=== PATIENT | male | born 1990 | race Caucasian/White ===

== ENCOUNTER 2019-09-08 17:21 | Inpatient (IN) | payer OTHER ==
--- NOTE | 2019-09-08 17:30 | PDOC ---
Rapid Medical Evaluation Chief Complaint: Abnormal Lab Results (Outside) Time Seen by Provider: 09/08/19 17:28 Medical Evaluation: Allergies Allergy/AdvReac Type Severity Reaction Status Date / Time No Known Allergies Allergy Verified 09/08/19 17:27 Vital Signs Temp Pulse Resp BP Pulse Ox 99.2 F 110 H 18 125/76 100 09/08/19 17:23 09/08/19 17:23 09/08/19 17:23 09/08/19 17:23 09/08/19 17:23 09/08/19 17:28 I have performed a brief in-person evaluation of this patient. CC: sent from [facility] for transaminitis PE: HR-114. T-99.2. No focal findings Orders: labs, urine, ekg Patient will proceed to ED for further evaluation. 09/08/19 17:29 Discharge Disposition - Diagnosis Elevated liver enzymes - Referrals - Patient Instructions - Post Discharge Activity
[2019-09-08] MEDS ORDERED: SODIUM CHLORIDE 1,000 ML IV STA (17:31)
[2019-09-08 18:21] LABS: URINE APPEARANCE Clear; URINE BILIRUBIN Negative (NEGATIVE); URINE COLOR Yellow; URINE GLUCOSE (UA) Negative (NEGATIVE); URINE KETONE Negative (NEGATIVE); URINE LEUK ESTERASE Negative (NEGATIVE); URINE NITRITE Negative (NEGATIVE); URINE PROTEIN Negative (NEGATIVE)
[2019-09-08 18:35] LABS: BASO % 0.6 % (0-2.0); HEMATOCRIT 46.1 % (35.4-49); HEMOGLOBIN 15.3 GM/dL (11.7-16.9); LYMPH % 34.2 % (8-40); MCH 30.1 pg (25.7-33.7); MCHC 33.1 g/dl (32.0-35.9); MEAN CELL VOLUME 90.8 fl (80-96); MEAN PLT VOLUME 7.8 fl (7.5-11.1); MONO % 9.6 % (3.8-10.2); NEUT % 54.6 % (42.8-82.8); PLATELET COUNT 193 K/MM3 (134-434); RBC 5.08 M/mm3 (4.00-5.60); RDW 16.3 % (11.9-15.9); WHITE BLOOD COUNT 7.6 K/mm3 (4.0-10.0)
[2019-09-08 18:42] LABS: ALBUMIN 4.1 g/dl (3.4-5.0); BILIRUBIN,TOTAL 0.8 mg/dL (0.2-1); BLOOD UREA NITROGEN 7.3 mg/dL (7-18); CALCIUM 9.3 mg/dL (8.5-10.1); CREATININE 0.8 mg/dL (0.55-1.3); POTASSIUM 4.4 mmol/L (3.5-5.1); TOT PROT 8.2 g/dl (6.4-8.2)
--- NOTE | 2019-09-08 18:56 | PDOC ---
Documentation entered by Claudia Mark SCRIBE, acting as scribe for Hannah Richardson MD. Hannah Richardson MD: This documentation has been prepared by the yaraibeJas Ana, SCRIBE, under my direction and personally reviewed by me in its entirety. I confirm that the documentation accurately reflects all work, treatment, procedures, and medical decision making performed by me. Attending Attestation - Resident Resident Name: Makenna Sharpe - ED Attending Attestation I have performed the following: I have examined & evaluated the patient, The case was reviewed & discussed with the resident, I agree w/resident's findings & plan, Exceptions are as noted - HPI HPI: 09/08/19 18:24 Patient is a 29 year old male with a significant past medical history of HIV, who presents to the ED with abnormal lab results x3 days. Patient said he had his labs checked 3 days ago and they showed elevated liver enzymes which prompted his doctor to send him to the ED. Pt denies symptoms at this time. Per Dr. Costa, his LFTs have been increasing over the last week. She requests admission for GI consultation. Patient denies: headache, fever, chills, nausea, vomiting, SOB, abdominal pain, diarrhea, dizziness, focal weakness/numbness or any other related symptoms. Allergies: NKDA PCP: Dr. Aurora Costa - Physicial Exam PE: 09/08/19 18:55 Agree with resident exam - Medical Decision Making 09/08/19 18:55 29yo M hx HIV on HAART (last CD4 in 600s) presents to the ED for admission with elevated LFTs AST/ALT Plan for RUQ US Discharge - Discharge Information Clinical Impression/Diagnosis: Elevated liver enzymes - Follow up/Referral Referrals: Aurora Costa MD [Primary Care Provider] - - Patient Discharge Instructions - Post Discharge Activity
--- NOTE | 2019-09-08 19:32 | PDOC ---
History of Present Illness - General Chief Complaint: Abnormal Lab Results (Outside) Stated Complaint: SENT BY DOCTOR Time Seen by Provider: 09/08/19 17:28 - History of Present Illness Initial Comments: 09/08/19 19:24 HPI: This is a 29 y/o male with a PMH of HIV sent in by his ID physician Dr. Costa due to abnormally elevated liver enzymes found incidentally on routine labs three days ago. The enzymes have remained elevated for the past three days and Dr. Costa wanted admission for transaminitis and GI consult. The patient denies excessive alcohol use but admits to drinking two days last week (3-4 drinks), drug use, or a history of hepatitis. He denies any accompanying symptoms including abdominal pain, nausea, vomiting, or diarrhea. ROS: GENERAL/CONSTITUTIONAL: No fever/chills. No weakness. HEAD, EYES, EARS, NOSE AND THROAT: No change in vision. No sore throat. CARDIOVASCULAR: No chest pain or shortness of breath. RESPIRATORY: No cough or wheezing GASTROINTESTINAL: No nausea, vomiting, diarrhea or constipation. GENITOURINARY: No dysuria or frequency MUSCULOSKELETAL: No joint or muscle swelling or pain. No neck or back pain. NEUROLOGIC: No headache or loss of consciousness. HEMATOLOGIC/LYMPHATIC: No anemia, easy bleeding, or history of blood clots. ALLERGIC/IMMUNOLOGIC: No hives or skin allergy. PMH: HIV PSx: Appendix Social Hx: Meds: Biktarvy Allergies: Denied ID Physician: Igor PE: GENERAL: Awake, alert, and fully oriented, in no acute distress. Patient was sitting comfortably in his bed and was conversational. HEAD: No signs of trauma EYES: PERRL, EOMI ENT: Hearing grossly normal, Moist mucosa NECK: Normal ROM, supple LUNGS: Breath sounds equal, clear to auscultation bilaterally. No wheezes, and no crackles HEART: Regular rate and rhythm, normal S1 and S2, no murmurs, rubs or gallops ABDOMEN: Soft, nontender, normoactive bowel sounds. No guarding, no rebound. No masses EXTREMITIES: Normal range of motion, no edema. No clubbing or cyanosis. No cords, erythema, or tenderness NEUROLOGICAL: Cranial nerves II through XII grossly intact. Normal speech, normal gait 09/08/19 21:10 MDM: This is a 29 y/o male with a PMH of HIV sent in by his ID Dr. Costa due to abnormally elevated liver enzymes found incidentally on routine labs three days ago. Patient denies any other symptoms at this time. CBC,CMP WBC 7.6 K/mm3 (4.0-10.0) 09/08/19 17:53 RBC 5.08 M/mm3 (4.00-5.60) 09/08/19 17:53 Hgb 15.3 GM/dL (11.7-16.9) 09/08/19 17:53 Hct 46.1 % (35.4-49) 09/08/19 17:53 MCV 90.8 fl (80-96) 09/08/19 17:53 MCH 30.1 pg (25.7-33.7) 09/08/19 17:53 MCHC 33.1 g/dl (32.0-35.9) 09/08/19 17:53 RDW 16.3 % (11.9-15.9) H 09/08/19 17:53 Plt Count 193 K/MM3 (134-434) 09/08/19 17:53 MPV 7.8 fl (7.5-11.1) 09/08/19 17:53 Absolute Neuts (auto) 4.2 K/mm3 (1.5-8.0) 09/08/19 17:53 Neutrophils % 54.6 % (42.8-82.8) 09/08/19 17:53 Lymphocytes % 34.2 % (8-40) 09/08/19 17:53 Monocytes % 9.6 % (3.8-10.2) 09/08/19 17:53 Eosinophils % 1.0 % (0-4.5) 09/08/19 17:53 Basophils % 0.6 % (0-2.0) 09/08/19 17:53 Nucleated RBC % 0 % (0-0) 09/08/19 17:53 Sodium 140 mmol/L (136-145) 09/08/19 17:53 Potassium 4.4 mmol/L (3.5-5.1) 09/08/19 17:53 Chloride 105 mmol/L (98-107) 09/08/19 17:53 Carbon Dioxide 28 mmol/L (21-32) 09/08/19 17:53 Anion Gap 7 MMOL/L (8-16) L 09/08/19 17:53 BUN 7.3 mg/dL (7-18) 09/08/19 17:53 Creatinine 0.8 mg/dL (0.55-1.3) 09/08/19 17:53 Est GFR (CKD-EPI)AfAm 139.91 09/08/19 17:53 Est GFR (CKD-EPI)NonAf 120.72 09/08/19 17:53 Random Glucose 92 mg/dL (74-106) 09/08/19 17:53 Calcium 9.3 mg/dL (8.5-10.1) 09/08/19 17:53 Total Bilirubin 0.8 mg/dL (0.2-1) 09/08/19 17:53 AST 435 U/L (15-37) H 09/08/19 17:53 ALT 996 U/L (13-61) H 09/08/19 17:53 Alkaline Phosphatase 121 U/L (45-117) H 09/08/19 17:53 Total Protein 8.2 g/dl (6.4-8.2) 09/08/19 17:53 Albumin 4.1 g/dl (3.4-5.0) 09/08/19 17:53 Lipase 92 U/L (73-393) 09/08/19 17:53 Elevated AST, ALT, Alkaline Phosphatase 09/08/19 21:14 US: Impression: Possible diffuse hepatic steatosis. No sonographic evidence of cholelithiasis or acute cholecystitis. There is no definite biliary tract dilatation. Patient will be admitted for GI consult. Past History - Medical History Allergies/Adverse Reactions: Allergies Allergy/AdvReac Type Severity Reaction Status Date / Time No Known Allergies Allergy Verified 09/08/19 17:27 Home Medications: Ambulatory Orders Bictegrav/Emtricit/Tenofov Ala [Biktarvy 50-200-25 mg Tablet] 1 each PO DAILY #30 tablet 09/06/19 Anemia: No Asthma: No Cancer: No Cardiac Disorders: No COPD: No CHF: No Diabetes: No GI Disorders: No Disorders: No HTN: No Liver Disease: No Seizures: No Thyroid Disease: No - Surgical History Appendectomy: Yes - Psycho-Social/Smoking History Smoking History: Current every day smoker Have you smoked in the past 12 months: Yes Information on smoking cessation initiated: Yes - Substance Abuse Hx (Audit-C & DAST Scrn) How often the patient has a drink containing alcohol: Monthly or less Score: In Men: 4 or > Positive; In Women: 3 or > Positive: 1 Screen Result (Pos requires Nsg. Audit-10AR): Negative In the last yr the pt used illegal drug/Rx for NonMed reason: No Score: Yes response is considered Positive: 0 Screen Result (Positive result requires Nsg. DAST-10): Negative *Physical Exam - Vital Signs Last Vital Signs Temp Pulse Resp BP Pulse Ox 99.2 F 74 18 116/75 98 09/08/19 17:23 09/08/19 18:35 09/08/19 18:35 09/08/19 18:35 09/08/19 18:35 ED Treatment Course - LABORATORY CBC & Chemistry Diagram: 09/09/19 06:16 09/09/19 06:16 - ADDITIONAL ORDERS Additional order review: Laboratory Results 09/08/19 09/08/19 17:53 17:53 Sodium 140 Potassium 4.4 Chloride 105 Carbon Dioxide 28 Anion Gap 7 L BUN 7.3 Creatinine 0.8 Est GFR (CKD-EPI)AfAm 139.91 Est GFR (CKD-EPI)NonAf 120.72 Random Glucose 92 Calcium 9.3 Total Bilirubin 0.8 AST 435 H ALT 996 H Alkaline Phosphatase 121 H Total Protein 8.2 Albumin 4.1 Lipase 92 Urine Color Yellow Urine Appearance Clear Urine pH 6.0 Ur Specific [place] >= 1.030 Urine Protein Negative Urine Glucose (UA) Negative Urine Ketones Negative Urine Blood Negative Urine Nitrite Negative Urine Bilirubin Negative Urine Urobilinogen 1.0 Ur Leukocyte Esterase Negative 09/08/19 17:53 RBC 5.08 MCV 90.8 MCHC 33.1 RDW 16.3 H MPV 7.8 Neutrophils % 54.6 Lymphocytes % 34.2 Monocytes % 9.6 Eosinophils % 1.0 Basophils % 0.6 - Medications Given in the ED: ED Medications Discontinued Medications Generic Name Dose Route Start Last Admin Trade Name Freq PRN Reason Stop Dose Admin Sodium Chloride 1,000 mls @ 1,000 mls/hr 09/08/19 17:31 09/08/19 17:56 Normal Saline - IV 09/08/19 18:30 1,000 mls/hr ASDIR STA Administration Discharge - Discharge Information Problems reviewed: Yes Clinical Impression/Diagnosis: Elevated liver enzymes, HIV infection, asymptomatic Condition: Stable - Admission Yes - Follow up/Referral - Patient Discharge Instructions - Post Discharge Activity
--- NOTE | 2019-09-08 21:45 | PN ---
Teaching Attending Note Name of Resident: Mahendra Viramontes ATTENDING PHYSICIAN STATEMENT I saw and evaluated the patient. I reviewed the resident's note and discussed the case with the resident. I agree with the resident's findings and plan as documented. SUBJECTIVE: Patient is a 29 year old man with a PMH of HIV disease on HAART (last CD4 count was 632 on September 06, 2019), Appendectomy, Hemorrhoids and Marijuana use who was sent to the ER with abnormal laboratory results. Patient said he had his labs checked 3 days ago and they showed elevated liver enzymes which prompted his doctor to send him to the ER. Patient offers no specific complaints at this time. Per Dr. Costa, his LFTs have been increasing over the last week. She requests admission for GI consultation. Patient says he has received Hepatitis B vaccination. Patient denies headache, fever, chills, nausea, vomiting, SOB, abdominal pain, diarrhea, dizziness, focal weakness or numbness. Denies alcohol, tobacco or illicit drug use. No sick contacts or recent travels. Has family history of DM in mother. OBJECTIVE: Alert Vital Signs Period Temp Pulse Resp BP Sys/Chaney Pulse Ox Last 24 Hr 99.2 F 74-110 18-18 116-125/75-76 98-100 HEENT: No Jaundice, eye redness or discharge, PERRLA, EOMI. Normocephalic, atraumatic. External ears are normal and hearing is grossly intact. No nasal discharge. Neck: Supple, nontender. No palpable adenopathy or thyromegaly. No JVD Chest: Good effort. Clear to auscultation and percussion. Heart: Regular. No S3, rub or murmur Abdomen: Not distended, soft, nontender and no HSM. No rebound or guarding. Normal bowel sounds. Ext: Peripheral pulses intact. No leg edema. Skin: Warm and dry. No petechiae, rash or ecchymosis. Neuro: Alert. Oriented x3. CN 2-12 grossly intact. Sensation grossly intact in all four extremities and DTR are symmetric. Psych: Appropriate mood and affect. Good insight. Home Medications Medication Instructions Recorded Bictegrav/Emtricit/Tenofov Ala 1 each PO DAILY #30 tablet 09/06/19 [Biktarvy 50-200-25 mg Tablet] Abnormal Lab Results 09/08/19 09/08/19 17:53 17:53 RDW 16.3 H Anion Gap 7 L AST 435 H ALT 996 H Alkaline Phosphatase 121 H Current Medications Generic Name Dose Route Start Last Admin Trade Name Tobias PRN Reason Stop Dose Admin Enoxaparin Sodium 40 mg 09/09/19 10:00 Lovenox - SQ DAILY ISABELL Non-Formulary Medication 1 each 09/09/19 10:00 Bictegrav/Emtricit/Tenofov Ala PO DAILY ISABELL ASSESSMENT AND PLAN: 1. Transaminitis - Etiology unclear. Ultrasound showed diffuse hepatic steatosis but no biliary obstruction. Will get hepatitis serology, trend LFTs and consult GI. Viral testing for COVID-19 ordered and patient placed on airborne, droplet and contact isolation. EKG shows NSR at 91/minute and QTc [address]-T wave changes. Continue Biktarvy for HIV disease. 2. DVT prophylaxis - Lovenox 40 mg SQ q 24 hours. 3. Advance directives - Full code
[2019-09-08 23:23] VITALS: BMI 25.5
--- NOTE | 2019-09-09 01:01 | HP ---
CHIEF COMPLAINT: Presents for abnormal labs PCP: Dr. Costa HISTORY OF PRESENT ILLNESS: Alicia Raza is a 29 Y M with a PMH of HIV (HAART- Biktarvy) present today from [facility] after abnormal lab values. Patient reports that his PCP Dr. Costa has been monitoring his LFTs for the last few days and noticed a progressive increase and after review of todays lab, he was referred to ER for further evaluation and management. At this time he denies any nausea, vomiting, fever, chills, night seats, diarrhea, chest pain, abdominal pain, palpitations, dysuria, or hematuria. His last CD4 count was 632 on September 05. He does not know his most recent viral counts. ED Course: He received N/S 1, 000ml. RUQ U/S was significant for possible diffuse hepatic steatosis. No evidence of cholelithiasis or acute cholecystitis. No biliary tract dilatation. ER course was notable for: (1) LFTS: AST 435, ALT 996, AKLP 121 (2) (3) Recent Travel: Denies PAST MEDICAL HISTORY: As above in HPI PAST SURGICAL HISTORY: Appendectomy Social History: Smoking: denies Alcohol: 2-3x/month, 4-5 glasses of cocktail Drugs: Current everyday marijuana use, about 3-4 blunts Allergies No Known Allergies Allergy (Verified 09/08/19 17:27) HOME MEDICATIONS: Home Medications Medication Instructions Recorded Bictegrav/Emtricit/Tenofov Ala 1 each PO DAILY #30 tablet 09/06/19 [Biktarvy 50-200-25 mg Tablet] REVIEW OF SYSTEMS CONSTITUTIONAL: Present: loss of appetite, Absent: fever, chills, diaphoresis, generalized weakness, malaise, HEENT: Absent: rhinorrhea, nasal congestion, throat pain, difficulty swallowing CARDIOVASCULAR: Absent: chest pain, syncope, palpitations, irregular heart rate, lightheadedness, peripheral edema RESPIRATORY: Absent: cough, shortness of breath, dyspnea with exertion, orthopnea, wheezing GASTROINTESTINAL: Present: abdominal discomfort, Nausea, vomiting Absent: abdominal distension , diarrhea, constipation GENITOURINARY: Present: flank pain Absent: dysuria, frequency, urgency, hesitancy, hematuria MUSCULOSKELETAL: Present: Right ankle pain Absent: myalgia, arthralgia, joint swelling, back pain, neck pain SKIN: Absent: rash, itching, pallor NEUROLOGIC: Absent: headache, focal weakness or paresthesias, dizziness, unsteady gait, bladder or bowel incontinence PHYSICAL EXAMINATION Vital Signs - 24 hr 09/08/19 09/08/19 09/08/19 17:23 18:35 23:00 Temperature 99.2 F 98.5 F Pulse Rate 110 H 85 Pulse Rate [ 74 Left Apical] Respiratory 18 18 18 Rate Blood Pressure 125/76 126/68 Blood Pressure 116/75 [Left Arm] O2 Sat by Pulse 100 98 98 Oximetry (%) 09/08/19 23:03 Temperature 98.5 F Pulse Rate 85 Pulse Rate [ Left Apical] Respiratory 18 Rate Blood Pressure 126/68 Blood Pressure [Left Arm] O2 Sat by Pulse 98 Oximetry (%) GENERAL: Awake, alert, and fully oriented, in no acute distress. HEAD: Normal with no signs of trauma. EYES: Pupils equal, round and reactive to light, extraocular movements intact, sclera anicteric, conjunctiva clear. EARS, NOSE, THROAT: Ears normal, nares patent, oropharynx clear without exudates. Moist mucous membranes. NECK: Normal range of motion, supple without lymphadenopathy, JVD, or masses. LUNGS: Breath sounds equal, clear to auscultation bilaterally. No wheezes, and no crackles. No accessory muscle use. HEART: Regular rate and rhythm, normal S1 and S2 without murmur, rub or gallop. ABDOMEN: Soft, mild discomfort to palpation-Nausea, not distended, Increased bowel sounds, no guarding, no rebound, no masses. No hepatomegaly or splenomegaly. MUSCULOSKELETAL: Normal range of motion at all joints. No bony deformities or tenderness. Right CVA tenderness. UPPER EXTREMITIES: 2+ pulses, warm, well-perfused. No cyanosis. No clubbing. No peripheral edema. LOWER EXTREMITIES: 2+ pulses, warm, well-perfused. No calf tenderness. No peripheral edema. NEUROLOGICAL: Normal speech. Normal gait. PSYCHIATRIC: Cooperative. Good eye contact. Appropriate mood and affect. SKIN: Warm, dry, normal turgor, no rashes or lesions noted Laboratory Results - last 24 hr 09/08/19 09/08/19 09/08/19 17:53 17:53 17:53 WBC 7.6 RBC 5.08 Hgb 15.3 Hct 46.1 MCV 90.8 MCH 30.1 MCHC 33.1 RDW 16.3 H Plt Count 193 MPV 7.8 Absolute Neuts (auto) 4.2 Neutrophils % 54.6 Lymphocytes % 34.2 Monocytes % 9.6 Eosinophils % 1.0 Basophils % 0.6 Nucleated RBC % 0 Sodium 140 Potassium 4.4 Chloride 105 Carbon Dioxide 28 Anion Gap 7 L BUN 7.3 Creatinine 0.8 Est GFR (CKD-EPI)AfAm 139.91 Est GFR (CKD-EPI)NonAf 120.72 Random Glucose 92 Calcium 9.3 Total Bilirubin 0.8 AST 435 H ALT 996 H Alkaline Phosphatase 121 H Total Protein 8.2 Albumin 4.1 Lipase 92 Urine Color Yellow Urine Appearance Clear Urine pH 6.0 Ur Specific [place] >= 1.030 Urine Protein Negative Urine Glucose (UA) Negative Urine Ketones Negative Urine Blood Negative Urine Nitrite Negative Urine Bilirubin Negative Urine Urobilinogen 1.0 Ur Leukocyte Esterase Negative ASSESSMENT/PLAN: 29 Y M with a PMH of HIV (HAART-Biktarvy) present today from [facility] for elevated LFTS. RUQ U/S was significant for possible diffuse hepatic steatosis. Patient is admitted for workup and management of elevated LFTs. #Transaminitis - Unclear etiology for hepatic cell injury - RUQ u/s was significant for diffuse hepatic steatosis w/o any biliary obstruction - consulted GI, will f/u with recs - f/u with Hep panel - will trend LFTs #HIV - CD4 count : 632 on September 05 - Continue home medications #FEN - No standing fluids - Continue to monitor electrolytes, trend LFTs - Normal Diet #DVT PPX - Lovenox 40mg Visit type - Emergency Visit Emergency Visit: Yes ED Registration Date: 09/08/19 Care time: The patient presented to the Emergency Department on the above date and was hospitalized for further evaluation of their emergent condition. - New Patient This patient is new to me today: Yes Date on this admission: 09/11/19 - Critical Care Critical Care patient: No ATTENDING PHYSICIAN STATEMENT I saw and evaluated the patient. I reviewed the resident's note and discussed the case with the resident. I agree with the resident's findings and plan as documented. SUBJECTIVE: OBJECTIVE: ASSESSMENT AND PLAN:
[2019-09-09 08:16] LABS: BASO % 0.6 % (0-2.0); EOS % 1.4 % (0-4.5); HEMATOCRIT 44.1 % (35.4-49); HEMOGLOBIN 14.4 GM/dL (11.7-16.9); LYMPH % 27.1 % (8-40); MCH 29.5 pg (25.7-33.7); MCHC 32.6 g/dl (32.0-35.9); MEAN CELL VOLUME 90.5 fl (80-96); MEAN PLT VOLUME 8.3 fl (7.5-11.1); MONO % 10.4 % (3.8-10.2); NEUT % 60.5 % (42.8-82.8); PLATELET COUNT 204 K/MM3 (134-434); RBC 4.88 M/mm3 (4.00-5.60); RDW 16.4 % (11.9-15.9)
[2019-09-09 08:55] LABS: CALCIUM 9.1 mg/dL (8.5-10.1); POTASSIUM 4.2 mmol/L (3.5-5.1)
[2019-09-09 09:00] LABS: ALBUMIN 3.6 g/dl (3.4-5.0); BILIRUBIN,TOTAL 1.4 mg/dL (0.2-1); BLOOD UREA NITROGEN 7.6 mg/dL (7-18); CREATININE 0.7 mg/dL (0.55-1.3); MAGNESIUM 2.4 mg/dL (1.8-2.4); PHOSPHOROUS 4.6 mg/dL (2.5-4.9); TOT PROT 7.3 g/dl (6.4-8.2)
[2019-09-09] MEDS ORDERED: PATIENT'S OWN MEDICATION (NON-FORMULARY) (Bictegrav/Emtricit/Tenofov Ala 1 EACH) PO SCH (10:00)
[2019-09-09] MEDS ORDERED: ENOXAPARIN NA (PORCINE) 40 MG/0.4 ML DISP.SYRIN SQ SCH (10:00)
[2019-09-09] MEDS ORDERED: BICTEGRAV/EMTRICIT/TENOFOV (BIKTARVY) 50-200-25 MG TABLET PO SCH (10:00)
--- NOTE | 2019-09-09 10:23 | EKG ---
Test Reason : Blood Pressure : / mmHG Vent. Rate : 091 BPM Atrial Rate : 091 BPM P-R Int : 148 ms QRS Dur : 098 ms QT Int : 336 ms P-R-T Axes : 055 076 058 degrees QTc Int : 413 ms NORMAL SINUS RHYTHM NORMAL ECG NO PREVIOUS ECGS AVAILABLE Confirmed by ALEKSANDRA ALDRIDGE MD ([id number]) on 09/09/2019 10:23:10 AM Referred By: Confirmed By:ALEKSANDRA ALDRIDGE MD
[2019-09-09 11:17] VITALS: BP 114/61; PULSE 85; TEMP 98
--- NOTE | 2019-09-09 12:13 | CON.GI ---
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 He was switched to Biktarvy several months ago. He started Biotin 4 weeks ago and stopped it one week ago. He denies any NSAIDs, acetaminophenor any herbal intake. He did have an alcohol binge on 26 of August having 5 Zain denies on Thursday and again in Thursday. He reports that he drinks alcohol only on weekends. he has been vaccinated for hepatitis A&B. His sonogram reveals a fatty liver,. NO stones or ductal dilation. No recent foreign travel. No rashes or night sweats. No tick bites. NO h/o liver disease. Appetite is good and weight is steady. NO IVDA or tranfusions but has has multiple tattoos. His mother has alcoholic liver disease. Works in [employer]. - History Source History Provided By: Patient Limitations to Obtaining History: No Limitations - Past Medical History Gastrointestinal: Yes: Hemorrhoids Hepatobiliary: Yes: Other (fatty liver) Infectious Disease: Yes: HIV - Past Surgical History Past Surgical History: Yes: None - Alcohol/Substance Use Hx Alcohol Use: Yes () History of Substance Use: reports: None - Smoking History Smoking history: Current every day smoker Have you smoked in the past 12 months: Yes - Social History Usual Living Arrangement: Alone ADL: Independent Occupation: interior design Place of : [facility] History of Recent Travel: No Home Medications - Allergies Allergies/Adverse Reactions: Allergies Allergy/AdvReac Type Severity Reaction Status Date / Time No Known Allergies Allergy Verified 09/08/19 17:27 - Home Medications Home Medications: Ambulatory Orders Bictegrav/Emtricit/Tenofov Ala [Biktarvy 50-200-25 mg Tablet] 1 each PO DAILY #30 tablet 09/06/19 Family Medical History Other Family History: mother has alcoholic liver disease Review of Systems - Review of Systems Constitutional: reports: No Symptoms Eyes: reports: No Symptoms HENT: reports: No Symptoms Neck: reports: No Symptoms Cardiovascular: reports: No Symptoms Respiratory: reports: No Symptoms Gastrointestinal: reports: No Symptoms Genitourinary: reports: No Symptoms Breasts: reports: No Symptoms Reported Integumentary: reports: No Symptoms Neurological: reports: No Symptoms Endocrine: reports: No Symptoms Hematology/Lymphatic: reports: No Symptoms Physical Exam-GI Vital Signs: Vital Signs Temperature 98 F 09/09/19 11:00 Pulse Rate 85 09/09/19 11:00 Respiratory Rate 18 09/09/19 11:00 Blood Pressure 114/61 09/09/19 11:00 O2 Sat by Pulse Oximetry (%) 98 09/09/19 11:00 CBC,CMP WBC 6.0 K/mm3 (4.0-10.0) 09/09/19 06:16 RBC 4.88 M/mm3 (4.00-5.60) 09/09/19 06:16 Hgb 14.4 GM/dL (11.7-16.9) 09/09/19 06:16 Hct 44.1 % (35.4-49) 09/09/19 06:16 MCV 90.5 fl (80-96) 09/09/19 06:16 MCH 29.5 pg (25.7-33.7) 09/09/19 06:16 MCHC 32.6 g/dl (32.0-35.9) 09/09/19 06:16 RDW 16.4 % (11.9-15.9) H 09/09/19 06:16 Plt Count 204 K/MM3 (134-434) 09/09/19 06:16 MPV 8.3 fl (7.5-11.1) 09/09/19 06:16 Absolute Neuts (auto) 3.6 K/mm3 (1.5-8.0) 09/09/19 06:16 Neutrophils % 60.5 % (42.8-82.8) 09/09/19 06:16 Lymphocytes % 27.1 % (8-40) D 09/09/19 06:16 Monocytes % 10.4 % (3.8-10.2) H 09/09/19 06:16 Eosinophils % 1.4 % (0-4.5) 09/09/19 06:16 Basophils % 0.6 % (0-2.0) 09/09/19 06:16 Nucleated RBC % 0 % (0-0) 09/09/19 06:16 Sodium 139 mmol/L (136-145) 09/09/19 06:16 Potassium 4.2 mmol/L (3.5-5.1) 09/09/19 06:16 Chloride 105 mmol/L (98-107) 09/09/19 06:16 Carbon Dioxide 28 mmol/L (21-32) 09/09/19 06:16 Anion Gap 6 MMOL/L (8-16) L 09/09/19 06:16 BUN 7.6 mg/dL (7-18) 09/09/19 06:16 Creatinine 0.7 mg/dL (0.55-1.3) 09/09/19 06:16 Est GFR (CKD-EPI)AfAm 147.81 09/09/19 06:16 Est GFR (CKD-EPI)NonAf 127.53 09/09/19 06:16 Random Glucose 83 mg/dL (74-106) 09/09/19 06:16 Calcium 9.1 mg/dL (8.5-10.1) 09/09/19 06:16 Phosphorus 4.6 mg/dL (2.5-4.9) 09/09/19 06:16 Magnesium 2.4 mg/dL (1.8-2.4) 09/09/19 06:16 Total Bilirubin 1.4 mg/dL (0.2-1) H 09/09/19 06:16 Direct Bilirubin 0.4 mg/dL (0.0-0.2) H 09/09/19 06:16 AST 383 U/L (15-37) H 09/09/19 06:16 ALT 896 U/L (13-61) H 09/09/19 06:16 Alkaline Phosphatase 107 U/L (45-117) 09/09/19 06:16 Total Protein 7.3 g/dl (6.4-8.2) 09/09/19 06:16 Albumin 3.6 g/dl (3.4-5.0) 09/09/19 06:16 Lipase 92 U/L (73-393) 09/08/19 17:53 Current Medications Generic Name Dose Route Start Last Admin Trade Name Freq PRN Reason Stop Dose Admin Bictegravir/Emtricitabine/Tenofovir 1 each 09/09/19 10:00 09/09/19 11:03 Biktarvy 50-200-25 Mg Tablet PO 1 each DAILY ISABELL Administration Enoxaparin Sodium 40 mg 09/09/19 10:00 09/09/19 11:00 Lovenox - SQ 40 mg DAILY ISABELL Administration Constitutional: Yes: Calm Eyes: Yes: Conjunctiva Clear HENT: Yes: Atraumatic Neck: Yes: Supple Cardiovascular: Yes: Regular Rate and Rhythm Respiratory: Yes: CTA Bilaterally Gastrointestinal Inspection: Yes: WNL ...Auscultate: Yes: Normoactive Bowel Sounds ...Palpate: Yes: Soft, Other (notender) ...Rectal Exam: Yes: Guaiac Negative (1+ prostate, no masses), Other (no inguinal hernias but has bilateral shoddy inguinal lymphadenopathy) Edema: No Peripheral Pulses WNL: Yes Integumentary: Yes: Tattoos Neurological: Yes: Alert, Oriented Labs: CBC, BMP 09/09/19 06:16 09/09/19 06:16 Laboratory Tests 12/16/16 12/16/16 12/16/16 11:55 11:55 11:55 Total Bilirubin AST ALT Alkaline Phosphatase C-Reactive Protein [id number] Ceruloplasmin BAO Screen Smooth Musc &HOSPITALIST PHYSICIAN Intrp Tiss Transglutamin IgG Tiss Transglutamin IgA Hepatitis A Ab Total Hep Bs Antibody Reactive Hep B Core Ab Interpret Negative Hepatitis C Antibody 0.2 Hep C Ab Diagnostic 12/08/17 12/08/17 09/08/19 11:05 11:05 10:00 Total Bilirubin AST ALT Alkaline Phosphatase C-Reactive Protein Liscj-5-Kmoyuwfucwy Ceruloplasmin BAO Screen Pending Smooth Musc &HOSPITALIST PHYSICIAN Intrp Tiss Transglutamin IgG Tiss Transglutamin IgA Hepatitis A Ab Total Positive H Hep Bs Antibody Hep B Core Ab Interpret Hepatitis C Antibody Hep C Ab Diagnostic <0.1 09/08/19 09/08/19 09/08/19 10:00 10:00 10:00 Total Bilirubin AST ALT Alkaline Phosphatase C-Reactive Protein < 0.3 Zlufy-5-Duuxzmsbzoi 172 H Ceruloplasmin Pending BAO Screen Smooth Musc &HOSPITALIST PHYSICIAN Intrp Pending Tiss Transglutamin IgG Pending Tiss Transglutamin IgA Pending Hepatitis A Ab Total Hep Bs Antibody Hep B Core Ab Interpret Hepatitis C Antibody Hep C Ab Diagnostic 09/08/19 09/09/19 17:53 06:16 Total Bilirubin 0.8 1.4 H AST 435 H 383 H ALT 996 H 896 H Alkaline Phosphatase 121 H 107 C-Reactive Protein Fkdsw-1-Nkxrrathsyj Ceruloplasmin BAO Screen Smooth Musc &HOSPITALIST PHYSICIAN Intrp Tiss Transglutamin IgG Tiss Transglutamin IgA Hepatitis A Ab Total Hep Bs Antibody Hep B Core Ab Interpret Hepatitis C Antibody Hep C Ab Diagnostic Problem List - Problems (1) Fatty liver Code(s): K76.0 - FATTY (CHANGE OF) LIVER, NOT ELSEWHERE CLASSIFIED (2) Elevated liver enzymes Code(s): R74.8 - ABNORMAL LEVELS OF OTHER SERUM ENZYMES (3) HIV infection, asymptomatic Code(s): Z21 - ASYMPTOMATIC HUMAN IMMUNODEFICIENCY VIRUS INFECTION STATUS Assessment/Plan Impression: - No obvious ingested agent to blame as biotin is not hepatotoxic and he has been on this HAART for months. They enzymes have just begun to downtrend and there are no synthetic liver abnormalities. The fatty liver suggests a role for alcohol and perhaps he drinks more than he is admitting to. Steatosis is however common in the [place] population without associated alcohol or obesity Plan: - Await ceruloplasmin, celiac panel and autoimmune data - Would pursue Fibroscan as outpatient - Advised Trungo to completely [id number] from alcohol - No GI objections to discharge I discussed the case with Dr Costa
[2019-09-09 12:14] LABS: BILIRUBIN,DIRECT 0.4 mg/dL (0.0-0.2)
--- NOTE | 2019-09-09 13:56 | PN ---
Progress Note (short form) - Note Progress Note: ID consult dictated d/w GI sent from clinic with abnl LFTs- now downtrending! some weekend etoh, formerly taking vitamins for his hair no travel no fevers feels well abnl lfts- ?hep c (pending viral load), ?medications, ?autoimmune sonogram fatty liver serologies pending d/w GI no objection to d/c home if okay with GI SHOULD RETURN TO [facility] ON THURSDAY MORNING FOR REPEAT LABS STABLE HIV- can continue Biktarvy to avoid ETOH, tylenol as outpt Problem List - Problems (1) Elevated liver enzymes Code(s): R74.8 - ABNORMAL LEVELS OF OTHER SERUM ENZYMES (2) HIV infection, asymptomatic Code(s): Z21 - ASYMPTOMATIC HUMAN IMMUNODEFICIENCY VIRUS INFECTION STATUS
--- NOTE | 2019-09-09 15:12 | PN ---
Teaching Attending Note Name of Resident: Yonatan Ansari ATTENDING PHYSICIAN STATEMENT I saw and evaluated the patient. I reviewed the resident's note and discussed the case with the resident. I agree with the resident's findings and plan as documented. SUBJECTIVE: Feeling well. No abdominal pain/nausea/vomiting. No fever/chills. No diarrhea. OBJECTIVE: Afebrile, hemodynamically Stable. Last Vital Signs Temp Pulse Resp BP Pulse Ox 98 F 85 18 114/61 98 09/09/19 11:00 09/09/19 11:00 09/09/19 11:00 09/09/19 11:00 09/09/19 11:00 HEENT - Atraumatic, Normocephalic. Heart - S1, S2, RRR Lungs - clear to auscultation Abdomen - Soft, non-tender. Bowel Sounds normal. Extremities - no edema, no calf tenderness Neuro - AAO x 3. Tone/Power normal all extremities. Laboratory Results - last 24 hr 09/08/19 09/08/19 09/08/19 17:53 17:53 17:53 WBC 7.6 RBC 5.08 Hgb 15.3 Hct 46.1 MCV 90.8 MCH 30.1 MCHC 33.1 RDW 16.3 H Plt Count 193 MPV 7.8 Absolute Neuts (auto) 4.2 Neutrophils % 54.6 Lymphocytes % 34.2 Monocytes % 9.6 Eosinophils % 1.0 Basophils % 0.6 Nucleated RBC % 0 Sodium 140 Potassium 4.4 Chloride 105 Carbon Dioxide 28 Anion Gap 7 L BUN 7.3 Creatinine 0.8 Est GFR (CKD-EPI)AfAm 139.91 Est GFR (CKD-EPI)NonAf 120.72 Random Glucose 92 Calcium 9.3 Phosphorus Magnesium Total Bilirubin 0.8 Direct Bilirubin AST 435 H ALT 996 H Alkaline Phosphatase 121 H Total Protein 8.2 Albumin 4.1 Lipase 92 Urine Color Yellow Urine Appearance Clear Urine pH 6.0 Ur Specific [place] >= 1.030 Urine Protein Negative Urine Glucose (UA) Negative Urine Ketones Negative Urine Blood Negative Urine Nitrite Negative Urine Bilirubin Negative Urine Urobilinogen 1.0 Ur Leukocyte Esterase Negative 09/09/19 09/09/19 06:16 06:16 WBC 6.0 RBC 4.88 Hgb 14.4 Hct 44.1 MCV 90.5 MCH 29.5 MCHC 32.6 RDW 16.4 H Plt Count 204 MPV 8.3 Absolute Neuts (auto) 3.6 Neutrophils % 60.5 Lymphocytes % 27.1 D Monocytes % 10.4 H Eosinophils % 1.4 Basophils % 0.6 Nucleated RBC % 0 Sodium 139 Potassium 4.2 Chloride 105 Carbon Dioxide 28 Anion Gap 6 L BUN 7.6 Creatinine 0.7 Est GFR (CKD-EPI)AfAm 147.81 Est GFR (CKD-EPI)NonAf 127.53 Random Glucose 83 Calcium 9.1 Phosphorus 4.6 Magnesium 2.4 Total Bilirubin 1.4 H Direct Bilirubin 0.4 H AST 383 H ALT 896 H Alkaline Phosphatase 107 Total Protein 7.3 Albumin 3.6 Lipase Urine Color Urine Appearance Urine pH Ur Specific [place] Urine Protein Urine Glucose (UA) Urine Ketones Urine Blood Urine Nitrite Urine Bilirubin Urine Urobilinogen Ur Leukocyte Esterase Current Medications Generic Name Dose Route Start Last Admin Trade Name Freq PRN Reason Stop Dose Admin Bictegravir/Emtricitabine/Tenofovir 1 each 09/09/19 10:00 09/09/19 11:03 Biktarvy 50-200-25 Mg Tablet PO 1 each DAILY ISABELL Administration Enoxaparin Sodium 40 mg 09/09/19 10:00 09/09/19 11:00 Lovenox - SQ 40 mg DAILY ISABELL Administration Home Medications Medication Instructions Recorded Bictegrav/Emtricit/Tenofov Ala 1 each PO DAILY #30 tablet 09/06/19 [Biktarvy 50-200-25 mg Tablet] ASSESSMENT AND PLAN: 29 year old male with history of HIV (on HAART-[facility]), referred to [facility] from [facility] due to persistently deranged LFTs. Asymptomatic. No abdominal pain/nausea/vomiting/fever. RUQ U/S - diffuse hepatic steatosis, no biliary obstruction 1. Elevated Transaminases, etiology unclear. Hepatitis panel, autoimmune work-up, ceruloplasmin pending Evaluated by GI - cleared for discharge with out-patient follow up for Fibroscan and results of all Ix. Advised to abstain from Alcohol. 2. HIV - on HAART Discussed with ID - HAART unlikely cause of LFT elevation. For ID follow up as out-patient. DVT Px - Lovenox Medically Stable and cleared by GI for discharge with GI and ID follow up.
--- NOTE | 2019-09-09 15:36 | DS ---
Physical Exam: SUBJECTIVE: Patient seen and examined at bedside. Patient denies any current symptoms or any overnight events. Patient denies night sweats, headaches, abdominal pain, diarrhea, chest pain, or shortness of breath. OBJECTIVE: Vital Signs Period Temp Pulse Resp BP Sys/Chaney Pulse Ox Last 24 Hr 97.9 F-99.2 F 74-110 18-18 108-126/61-76 98-100 PHYSICAL EXAM GENERAL: The patient is awake, alert, and fully oriented, in no acute distress. HEAD: Normal with no signs of trauma. EYES: PERRL, extraocular movements intact, sclera anicteric, conjunctiva clear. LUNGS: Breath sounds equal, clear to auscultation bilaterally, no wheezes, no crackles, no accessory muscle use. HEART: Regular rate and rhythm, S1, S2 without murmur, rub or gallop. ABDOMEN: Soft, nontender, nondistended, normoactive bowel sounds, no guarding, no rebound, no hepatosplenomegaly, no masses. EXTREMITIES: 2+ pulses, warm, well-perfused, no edema. SKIN: Warm, dry, normal turgor, no rashes or lesions noted. LABS Laboratory Results - last 24 hr 09/08/19 09/08/19 09/08/19 17:53 17:53 17:53 WBC 7.6 RBC 5.08 Hgb 15.3 Hct 46.1 MCV 90.8 MCH 30.1 MCHC 33.1 RDW 16.3 H Plt Count 193 MPV 7.8 Absolute Neuts (auto) 4.2 Neutrophils % 54.6 Lymphocytes % 34.2 Monocytes % 9.6 Eosinophils % 1.0 Basophils % 0.6 Nucleated RBC % 0 Sodium 140 Potassium 4.4 Chloride 105 Carbon Dioxide 28 Anion Gap 7 L BUN 7.3 Creatinine 0.8 Est GFR (CKD-EPI)AfAm 139.91 Est GFR (CKD-EPI)NonAf 120.72 Random Glucose 92 Calcium 9.3 Phosphorus Magnesium Total Bilirubin 0.8 Direct Bilirubin AST 435 H ALT 996 H Alkaline Phosphatase 121 H Total Protein 8.2 Albumin 4.1 Lipase 92 Urine Color Yellow Urine Appearance Clear Urine pH 6.0 Ur Specific [place] >= 1.030 Urine Protein Negative Urine Glucose (UA) Negative Urine Ketones Negative Urine Blood Negative Urine Nitrite Negative Urine Bilirubin Negative Urine Urobilinogen 1.0 Ur Leukocyte Esterase Negative 09/09/19 09/09/19 06:16 06:16 WBC 6.0 RBC 4.88 Hgb 14.4 Hct 44.1 MCV 90.5 MCH 29.5 MCHC 32.6 RDW 16.4 H Plt Count 204 MPV 8.3 Absolute Neuts (auto) 3.6 Neutrophils % 60.5 Lymphocytes % 27.1 D Monocytes % 10.4 H Eosinophils % 1.4 Basophils % 0.6 Nucleated RBC % 0 Sodium 139 Potassium 4.2 Chloride 105 Carbon Dioxide 28 Anion Gap 6 L BUN 7.6 Creatinine 0.7 Est GFR (CKD-EPI)AfAm 147.81 Est GFR (CKD-EPI)NonAf 127.53 Random Glucose 83 Calcium 9.1 Phosphorus 4.6 Magnesium 2.4 Total Bilirubin 1.4 H Direct Bilirubin 0.4 H AST 383 H ALT 896 H Alkaline Phosphatase 107 Total Protein 7.3 Albumin 3.6 Lipase Urine Color Urine Appearance Urine pH Ur Specific Eugene Urine Protein Urine Glucose (UA) Urine Ketones Urine Blood Urine Nitrite Urine Bilirubin Urine Urobilinogen Ur Leukocyte Esterase HOSPITAL COURSE: Date of Admission:09/08/19 Ry is a 29M w a h/o HIV treated with Biktarvy with a CD4 count of 632, appendectomy when he was a child, hemorrhoids, marijuana, and sparse alcohol use. The patient was sent to the emergency department for elevated LFT results after being evaluated [facility]. The patient reported no symptoms at the time and on admission. The patient was examined at bedside without any complaints. The patient was evaluated with an abdominal ultrasound which did not show any acute abnormalities. The patients liver enzymes were trending down and the patient was treated with antiretroviral therapy. GI was consulted and re commended outpatient follow up. Date of Discharge: 09/09/19 Minutes to complete discharge: 40 Discharge Summary Problems reviewed: Yes Reason For Visit: ASYMPTOMATIC HUMAN IMMUNODEFICIENCY VIRUS INFECTIO Current Active Problems Elevated liver enzymes (Chronic) HIV infection, asymptomatic (Chronic) Condition: Good - Instructions Diet, Activity, Other Instructions: YOUR VISIT: You were admitted to the hospital for abnormal lab values. While you were in the hospital, we evaluated you with lab work, blood work, and imaging studies including an ultrasound of your stomach. Your symptoms were likely caused by alcohol injury to your liver. You were evaluated by infectious disease (Dr. Costa) and Gastroenterology (Dr. Torres). You were treated with medications and your symptoms improved. MEDICATION: Please continue taking your Biktarvy as prescribed Please continue taking all your medications as prescribed FOLLOW UP: Please follow up with your primary care physician (Dr. Costa) at the [facility] as soon as possible after you are discharge to repeat your liver enzyme blood work next week. Please follow up with your triage clinician (Dr. Torres) within 1 week after discharge for further imaging ADDITIONAL INSTRUCTIONS: - You are being discharged to your home - Please return to the Emergency Department if you experience worsening pain, fevers, chills, shortness of breath, or chest pain, or if you experience any worsening, new or concerning symptoms. Referrals: Aurora Costa MD [Primary Care Provider] - 1 Week Sandra Torres MD [Staff Physician] - 1 Week (Fibroscan) Disposition: HOME - Home Medications Comprehensive Discharge Medication List: Ambulatory Orders Bictegrav/Emtricit/Tenofov Ala [Biktarvy 50-200-25 mg Tablet] 1 each PO DAILY #30 tablet 09/06/19 This patient is new to me today: Yes Date on this admission: 09/09/19 Emergency Visit: Yes ED Registration Date: 09/08/19 Care time: The patient presented to the Emergency Department on the above date and was hospitalized for further evaluation of their emergent condition. Critical Care patient: No - Discharge Referral Referred to [facility] Med P.C.: No ATTENDING PHYSICIAN STATEMENT I saw and evaluated the patient. I reviewed the resident's note and discussed the case with the resident. I agree with the resident's findings and plan as documented. SUBJECTIVE: OBJECTIVE: ASSESSMENT AND PLAN:
--- NOTE | 2019-09-09 19:30 | CONS ---
DATE OF CONSULTATION: DATE OF DICTATION: 09/09/2019 INFECTIOUS DISEASE CONSULTATION HISTORY OF PRESENT ILLNESS: This is a 29-year-old man who I follow at the [facility]. He has been stable on Biktarvy for a long time. He presented on the for routine followup. He was feeling well, taking his medications regularly. At that point his labs were checked. He was noted to have an elevated transaminases. He was contacted and advised to return the next day for a repeat. He is hepatitis A and hepatitis B immune. He came back to the clinic on the and had labs repeated including a hepatitis C serology and autoimmune serology including BAO, ASMA, and . He was returned again the next day. His INR as well as normal, and on return was noted the next day to have an elevated bilirubin of 1.2 and with transaminases that were starting to trend up, and he was advised admission. He presented last night to the ER for admission. He had a sonogram of his abdomen done which showed fatty liver. This morning his transaminases have started trending down with AST of 383 and ALT 896. The alkaline phosphatase is trending down to 107 as well . His INR is 0.99. He gave a history of some drinking over August 26, where he drank Zain Garcia, 10 or 12 of them over the course of 2 days. He was recently also on a vitamin hair care for his hair care, which he has also completed and stopped. It was stopped one week ago. There is no nonsteroidal use. He has not been taking any Tylenol, and does not take any supplements. He denies any fevers or chills. He has not had any travel. He has no rash. He has not taken any other medications. SOCIAL HISTORY: Notable for, he lives with his family. He is currently collecting unemployment, but he works in [employer]. PAST MEDICAL HISTORY: Notable for abnormal anal Pap. Has history of hemorrhoids and very stable HIV. Otherwise there is no substance use, and he smokes cigarettes. ALLERGIES: No known drug allergies. MEDICATION: He takes Biktarvy as an outpatient. FAMILY HISTORY: As stated. Mother with alcoholic liver disease. He has a twin brother. REVIEW OF SYSTEMS: He feels well. There is no weight loss. He has no diarrhea. No nausea or vomiting, abdominal pain, or chest pain. PHYSICAL EXAMINATION: General: He is a pleasant young man in no acute distress. Vital Signs: Temperature is 98, pulse 85, blood pressure 114/61, respiratory rate 18, saturating 98%. HEENT: Normocephalic. Eyes are anicteric. Neck: Supple. Lungs: Clear to auscultation. Heart: Regular rate and rhythm. Abdomen: Soft, nontender. Extremities: Without edema. LABORATORY: White count is 6, hemoglobin is 14.4, platelets are 204. INR is 0.9. His chemistries: BUN and creatinine are normal. He has a total bilirubin of 1.4, AST has now come down to 383 with an ALT of 896, alkaline phosphatase is 107. Urinalysis is negative. His serologies are pending. His T-cells are 632. RPR is negative. Sonogram as mentioned, he has a fatty liver. IMPRESSION: 1. In summary, this is a 29-year-old man with abnormal liver function tests, hepatitis C, viral load is pending, possible medications which would include this new vitamin supplement as well as possible autoimmune disease, serology is pending. Sonogram shows fatty liver, serologies are pending. Discussed with Gastrointestinal. No objection to discharge home if okay with Gastrointestinal. He should return to the [facility] Thursday morning for routine labs. 2. Stable human immunodeficiency virus. He can continue his Biktarvy for now, to avoid alcohol as outpatient. CAMRON SPAIN M.D. [id number]
== END 2019-09-09 16:51 | disposition home or self-care (01) ==
LOC: JER 17:21 → JERBED 21:03 → J7W 22:57
PROVIDERS: ADMIT Internal Medicine
DX: K76.0 Fatty (change of) liver, not elsewhere classified (principal); Z21 Asymptomatic human immunodeficiency virus [HIV] infection status; Z72.89 Other problems related to lifestyle; F17.210 Nicotine dependence, cigarettes, uncomplicated; F12.90 Cannabis use, unspecified, uncomplicated; Z68.25 Body mass index [BMI] 25.0-25.9, adult; R11.2 Nausea with vomiting, unspecified; R10.9 Unspecified abdominal pain; R74.0 Nonspecific elevation of levels of transaminase and lactic acid dehydrogenase [LDH]; R63.0 Anorexia
CPT/HCPCS: 36415; 76705-TC; 80053; 80074; 81003; 82248; 83690; 83735; 84100; 85025; 93005; 93010; 99285-25; U0003